=== PATIENT | male | born 1950 | race Caucasian/White ===

== ENCOUNTER 2019-04-24 07:32 | Day surgery (SDC) | payer MEDICARE ==
[~2019-04-24 07:32] MED LIST: Lactated Ringers 1,000 ML IV SCH
[2019-04-24] MEDS ORDERED: Propofol 200 MG/20 ML SDV IV ONE (07:33)
--- NOTE | 2019-04-24 09:47 | PCM.OPNOTE ---
- General Post-Op/Procedure Note Date of Surgery/Procedure: 04/24/19 Operative Procedure(s): c scope with bx Findings: descending colon mass Anesthesia Technique: MAC Primary Surgeon: Tra Marie Anesthesia Provider: Jazz Spencer ([facility] CRNAS) Pathology: colon mass Condition: Good Free Text/Narrative:: see dictation
--- NOTE | 2019-04-24 10:41 | OR ---
DATE OF OPERATION: 04/24/2019 SURGEON: Tra Marie MD PROCEDURE PERFORMED: Colonoscopy. PREOPERATIVE DIAGNOSIS: Need for screening C scope. POSTOPERATIVE DIAGNOSIS: Descending colon mass. INDICATIONS FOR PROCEDURE: This is a 69-year-old white male, who presents for screening colonoscopy. This is his first colon. He is without complaints. DESCRIPTION OF OPERATION: After an excellent IV sedation was administered, digital rectal exam was performed. No marked abnormality was noted. Flexible colonoscope was inserted and advanced to approximately 50 cm, where a circumferential lesion was encountered. We were able to advance the scope slightly through this and see beyond it. However, because of the friable nature of the tissue, we elected not to pursue this. Multiple biopsies were taken as well as a photo of this area. The scope was then slowly withdrawn. The following findings were noted. Remainder of the descending colon was unremarkable, sigmoid was unremarkable, and rectum was unremarkable. Further workup on the basis of our biopsy results. /[id number] SWATI/TARUN
== END 2019-04-24 10:18 | disposition home or self-care (01) ==
LOC: FB.SDS 07:32
PROVIDERS: ATTEND Surgery
DX: Z12.11 Encounter for screening for malignant neoplasm of colon (principal); C18.6 Malignant neoplasm of descending colon; I10 Essential (primary) hypertension; E11.9 Type 2 diabetes mellitus without complications; M10.9 Gout, unspecified; N40.0 Benign prostatic hyperplasia without lower urinary tract symptoms; E66.9 Obesity, unspecified; Z68.34 Body mass index [BMI] 34.0-34.9, adult; Z85.528 Personal history of other malignant neoplasm of kidney; Z79.899 Other long term (current) drug therapy; Z79.82 Long term (current) use of aspirin; Z88.8 Allergy status to other drugs, medicaments and biological substances; Z98.890 Other specified postprocedural states
CPT/HCPCS: 00812; 45380; 82962; 88305; J2704; J7120

== ENCOUNTER 2019-05-14 07:15 | Inpatient (IN) | payer MEDICARE ==
[2019-05-14] MEDS: Lactated Ringers 1,000 ML IV SCH ×2 (08:38→20:11)
[2019-05-14] MEDS ORDERED: cefOXitin 2 GM in Sodium Chloride 0.9% 100 ML IV ONE (08:45)
[2019-05-14] MEDS ORDERED: cefOXitin 2 GM Vial IV ONE (08:45)
--- NOTE | 2019-05-14 13:33 | PCM.OPNOTE ---
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
[2019-05-14] MEDS ORDERED: Ondansetron 4 MG/2 ML SDV IVPUSH PRN (13:34)
--- NOTE | 2019-05-14 14:33 | OR ---
DATE OF OPERATION: 05/14/2019 SURGEON: Tra Marie MD PROCEDURE PERFORMED: Left hemicolectomy and splenectomy. 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 INDICATIONS FOR PROCEDURE: This is a 69-year-old white male who recently underwent a colonoscopy and was found to have a near obstructing lesion of his left colon. He has a history of left nephrectomy as well as gangrenous gallbladder. He has had three previous intraoperative operations to this point. He was offered and accepted a left hemicolectomy. INTRAOPERATIVE FINDINGS: Are as follows, we were not able to palpate the liver. Due to adhesions, no other gross abnormality was noted. The patient had marked adhesions up of the splenic flexure between the colon and the spleen itself. He apparently had his short gastrics taken down with his nephrectomy. This did have an impact on the subsequent operation. DESCRIPTION OF PROCEDURE: After an excellent general anesthetic was administered via endotracheal tube, a Alcaraz catheter was placed. The patient was prepped and draped in the usual sterile manner. Midline incision was then carried out through his previous midline incision down below the umbilicus approximately 3 cm. With a #10 scalpel blade, the underlying subcu fat was divided using electrocautery. The midline fascia was exposed. The area of the umbilicus, the peritoneal cavity was opened. This allowed us to enter the peritoneal cavity superiorly and we were able to note a minimum of omental adhesions, which were taken down with the ligature. The mass was palpated and noted to be mid descending colon. The white line of Toldt was taken down starting at the level of the spleen and moving superiorly. When we got into the area of the splenic flexure, there were marked adhesions both posteriorly with retroperitoneum and between this colon and the spleen itself. There was some bleeding noted from the inferior pole of the spleen. This area had Nu-Knit placed on it and the area was packed off and it appeared to control the bleeding. Once we mobilized the colon at the level of the sigmoid, a rent was made in the mesentery. MILES was used to transect the sigmoid colon. V shape was then carried down to the level of the mid colic vessels which were clamped, divided, and tied with both free tie and suture ligature. The mesentery was then also divided up to the level of the now immobile of splenic flexure and the colon was divided again with a MILES. We were able to bring the two edges together very nicely. The posterior hand-sewn anastomosis was carried out with a posterior row of 3-0 Vicryl in a simple interrupted. After excising the staple line, the inner anastomosis was carried out with a running simple suture posteriorly and a running Mihai suture anteriorly and then the outer loop was carried out with interrupted Lembert sutures. Palpating the anastomosis, it was noted to be widely open and patent. The bowel appeared to be unremarkable and very viable. The mesenteric defect was then closed with a running 2-0 Vicryl. On re-inspecting the spleen, it was evident that he had some persistent bleeding and oozing with both arterial and venous. This was not control even with re- application of Nu-Knit and direct pressure. At this point, given his age and the fact that it is very difficult to get splenic bleeding to stop in this situation, we elected to proceed with a splenectomy. The spleen was mobilized with head attachments being taken down with the ligature. The splenic artery and vein were clamped, divided and tied with a 2-0 tie as well as a stick tie. The stomach was carefully inspected and there was no evidence of any short gastrics that were remaining. The area was irrigated and after ensuring excellent hemostasis, we reinspected our intestine. There was one small area of small intestine that more of the serosal appeared to be injured possibly from a ligature. This was oversewn with interrupted 3-0 Vicryl. There was a similar spot on the colon that was oversewn as well with interrupted 3-0 Vicryl to reapproximate and these were very superficial injuries, but this was done as a precaution. During inspecting our colon again, the omentum was returned to normal anatomic position. The fascial defect was closed with a running #1 Prolene and then jacy were used to close the skin. Needle, sponge, and instrument counts were reported as correct. EBL according to the anesthesia was 1600 mL. He got a total of 3800 mL IV and a 250 mL of urine out. /[id number] /MODL GILLESD
[2019-05-14] MEDS: Acetaminophen 1,000 MG in Premix Bag 1 BAG IV SCH ×2 (15:38→21:20)
[2019-05-14] MEDS: Pantoprazole 40 MG Vial IVPUSH SCH (17:28)
[2019-05-14] MEDS: HYDROmorphone 2 MG/ML SDV IVPUSH PRN (17:37)
--- NOTE | 2019-05-14 17:49 | PCM.SURGPN ---
- General Info Date of Service: 05/14/19 Date of Surgery/Procedure: 05/14/19 Functional Status: Reports: Pain Controlled, Urinating - Review of Systems Systems Review Comment:: was having some hypotension. this is better with some albumin - Patient Data Vitals - Most Recent: Last Vital Signs Temp 97.5 F 05/14/19 14:04 Pulse 82 05/14/19 17:08 Resp 16 05/14/19 17:08 BP 116/49 L 05/14/19 17:08 Pulse Ox 100 05/14/19 17:08 Weight - Most Recent: 98.883 kg I&O - Last 24 Hours: Intake & Output 05/14/19 05/14/19 05/14/19 06:59 14:59 22:59 Intake Total 3800 Output Total 250 35 Balance 3550 -35 Lab Results Last 24 Hrs: Laboratory Results - last 24 hr 05/14/19 05/14/19 05/14/19 Range/Units 07:55 08:28 13:03 WBC (4.5-12.0) X10-3/uL RBC (4.30-5.75) x10(6)uL Hgb (13.5-17.8) g/dL Hct (30.0-51.3) % MCV (80-96) fL MCH (27.7-33.6) pg MCHC (32.2-35.4) g/dL RDW (11.5-15.5) % Plt Count (125-369) X10(3)uL MPV (7.4-10.4) fL Add Manual Diff Neutrophils % (Manual) (46-82) % Band Neutrophils % (0-6) % Lymphocytes % (Manual) (13-37) % Monocytes % (Manual) (4-12) % Poikilocytosis Microcytosis POC Glucose 94 (80-116) mg/dL Blood Type O POSITIVE Gel Antibody Screen Positive Antibody Identification Anti-E Crossmatch See Detail 05/14/19 05/14/19 Range/Units 13:50 13:53 WBC 26.3 H (4.5-12.0) X10-3/uL RBC 3.52 L (4.30-5.75) x10(6)uL Hgb 9.1 L (13.5-17.8) g/dL Hct 27.3 L (30.0-51.3) % MCV 77.6 L (80-96) fL MCH 26.0 L (27.7-33.6) pg MCHC 33.5 (32.2-35.4) g/dL RDW 15.5 (11.5-15.5) % Plt Count 186 (125-369) X10(3)uL MPV 9.3 (7.4-10.4) fL Add Manual Diff Yes Neutrophils % (Manual) 87 H (46-82) % Band Neutrophils % 3 (0-6) % Lymphocytes % (Manual) 4 L (13-37) % Monocytes % (Manual) 6 (4-12) % Poikilocytosis Few Microcytosis Few POC Glucose 163 H (80-116) mg/dL Blood Type Gel Antibody Screen Antibody Identification Crossmatch Med Orders - Current: Current Medications Hydromorphone HCl (Dilaudid) 1 mg IVPUSH Q1H PRN PRN Reason: Pain (moderate 4-6) Last Admin: 05/14/19 17:37 Dose: 1 mg Lactated Ringer's (Ringers, Lactated) 1,000 mls @ 125 mls/hr IV ASDIRECTED [facility] Last Admin: 05/14/19 08:38 Dose: 125 mls/hr Acetaminophen 1,000 mg/ Premix 100 mls @ 400 mls/hr IV Q6H [facility] Stop: 05/15/19 15:29 Last Admin: 05/14/19 15:38 Dose: 400 mls/hr Albumin Human (Flexbumin 5%) 250 mls @ 250 mls/hr IV ASDIRECTED [facility] Last Admin: 05/14/19 15:21 Dose: 250 mls/hr Ondansetron HCl (Zofran) 4 mg IVPUSH Q6H PRN PRN Reason: Nausea/Vomiting Pantoprazole Sodium (Protonix Iv) 40 mg IVPUSH DAILY [facility] Last Admin: 05/14/19 17:28 Dose: 40 mg Sodium Chloride (Saline Flush) 10 ml FLUSH ASDIRECTED PRN PRN Reason: Keep Vein Open Discontinued Medications Cefoxitin Sodium (Mefoxin) 2 gm IV ONETIME ONE Stop: 05/14/19 08:46 Last Admin: 05/14/19 09:05 Dose: 2 gm - Exam Wound/Incisions: Dressing Dry and Intact Lungs: Clear to Auscultation, Normal Respiratory Effort Cardiovascular: Regular Rate, Regular Rhythm GI/Abdominal Exam: Abnormal Bowel Sounds (hypoactive ) - Problem List & Annotations (1) S/P colon resection SNOMED Code(s): 536314569, 34134282, 12597833, 119899093 Code(s): Z90.49 - ACQUIRED ABSENCE OF OTHER SPECIFIED PARTS OF DIGESTIVE TRACT Status: Acute Current Visit: Yes Annotation/Comment:: left dejuan colectomy (2) S/P splenectomy during current hospitalisation SNOMED Code(s): 743089751 Code(s): LMG3480 - Status: Acute Current Visit: Yes - Problem List Review Problem List Initiated/Reviewed/Updated: Yes - My Orders Last 24 Hours: Active Orders 24 hr Category Date Time Status Patient Status [ADT] Routine ADT 05/14/19 07:15 Active Ambulate [RC] .TID Care 05/14/19 13:35 Active Antiembolic Devices [RC] .Routine Care 05/14/19 13:36 Active Blood Glucose Check, Bedside [RC] [id number] Care 05/14/19 17:44 Ordered Gastrointestinal Tube Mgmt [RC] QSHIFT Care 05/14/19 13:34 Active Insert Alcaraz Catheter [Insert Urinary Catheter] [OM.PC] Care 05/14/19 08:45 Ordered Q24H Intake and Output [RC] QSHIFT Care 05/14/19 13:35 Active Notify Provider Vital Signs [RC] ASDIRECTED Care 05/14/19 17:17 Active Oxygen Therapy [RC] PRN Care 05/14/19 13:34 Active RT Incentive Spirometry [RC] ASDIRECTED Care 05/14/19 07:15 Active RT Incentive Spirometry [RC] Q2HWA Care 05/14/19 13:34 Active Urinary Catheter Assessment [RC] QSHIFT Care 05/14/19 08:45 Active VTE/DVT Education [RC] Click to Edit Care 05/14/19 13:36 Active Vital Signs [RC] Q4HR Care 05/14/19 13:34 Active BASIC METABOLIC PANEL,BMP [CHEM] AM Lab 05/15/19 05:11 Ordered CBC WITH AUTO DIFF [HEME] AM Lab 05/15/19 05:11 Ordered RED BLOOD CELLS LP [BBK] Routine Lab 05/14/19 13:03 Results Acetaminophen [Ofirmev] 1,000 mg Med 05/14/19 15:30 Active Premix Bag 1 bag IV Q6H Albumin Human [Flexbumin 5%] 250 ml Med 05/14/19 15:00 Active IV ASDIRECTED HYDROmorphone [Dilaudid] Med 05/14/19 13:34 Active 1 mg IVPUSH Q1H PRN Lactated Ringers [Ringers, Lactated] 1,000 ml Med 05/14/19 07:15 Active IV ASDIRECTED Ondansetron [Zofran] Med 05/14/19 13:34 Active 4 mg IVPUSH Q6H PRN Pantoprazole [ProTONIX IV] Med 05/14/19 17:00 Active 40 mg IVPUSH DAILY Sodium Chloride 0.9% [Saline Flush] Med 05/14/19 07:15 Active 10 ml FLUSH ASDIRECTED PRN DVT/VTE Prophylaxis Reflex [OM.PC] Per Unit Routine Oth 05/14/19 13:36 Ordered Peripheral IV Insertion Adult [OM.PC] Routine Oth 05/14/19 07:15 Ordered Sequential Compression Device [OM.PC] Routine Oth 05/14/19 07:15 Ordered Medication Orders Hydromorphone HCl (Dilaudid) 1 mg IVPUSH Q1H PRN PRN Reason: Pain (moderate 4-6) Last Admin: 05/14/19 17:37 Dose: 1 mg Lactated Ringer's (Ringers, Lactated) 1,000 mls @ 125 mls/hr IV ASDIRECTED [facility] Last Admin: 05/14/19 08:38 Dose: 125 mls/hr Acetaminophen 1,000 mg/ Premix 100 mls @ 400 mls/hr IV Q6H [facility] Stop: 05/15/19 15:29 Last Admin: 05/14/19 15:38 Dose: 400 mls/hr Albumin Human (Flexbumin 5%) 250 mls @ 250 mls/hr IV ASDIRECTED [facility] Last Admin: 05/14/19 15:21 Dose: 250 mls/hr Ondansetron HCl (Zofran) 4 mg IVPUSH Q6H PRN PRN Reason: Nausea/Vomiting Pantoprazole Sodium (Protonix Iv) 40 mg IVPUSH DAILY [facility] Last Admin: 05/14/19 17:28 Dose: 40 mg Sodium Chloride (Saline Flush) 10 ml FLUSH ASDIRECTED PRN PRN Reason: Keep Vein Open - Assessment Assessment (Free Text/Narrative):: will add sliding scale.
[2019-05-14] MEDS ORDERED: Midazolam 1 MG/ML 2 ML SDV IV ONE (17:54)
[2019-05-14] MEDS ORDERED: Succinylcholine 200 MG/10 ML MDV IV ONE (17:54)
[2019-05-14] MEDS ORDERED: Lactated Ringers 1,000 ML IV ONE (17:54)
[2019-05-14] MEDS ORDERED: Ondansetron 4 MG/2 ML SDV IVPUSH ONE (17:54)
[2019-05-14] MEDS ORDERED: Propofol 200 MG/20 ML SDV IV ONE (17:54)
[2019-05-14] MEDS ORDERED: ePHEDrine 50 MG/ML SDV IV ONE (17:54)
[2019-05-14] MEDS ORDERED: Acetaminophen 1,000 MG/100 ML Infusion Bottle IV ONE (17:54)
[2019-05-14] MEDS ORDERED: fentaNYL 100 MCG/2 ML SDV IV ONE (17:54)
[2019-05-14] MEDS ORDERED: Ketamine 500 mg/10 ML MDV IV ONE (17:54)
[2019-05-14] MEDS ORDERED: Phenylephrine 1% 10 MG/ML SDV IV ONE (17:54)
[2019-05-14] MEDS ORDERED: Glycopyrrolate 0.2 MG/ML 5 ML MDV IV ONE (17:54)
[2019-05-14] MEDS ORDERED: Rocuronium 100 MG/10 ML MDV IV ONE (17:54)
[2019-05-14] MEDS: Insulin Lispro 100 Unit/ML 3 ML KwikPen SUBCUT SCH (18:12)
[2019-05-15] MEDS: Insulin Lispro 100 Unit/ML 3 ML KwikPen SUBCUT SCH ×3 (01:55→18:11)
[2019-05-15] MEDS: HYDROmorphone 2 MG/ML SDV IVPUSH PRN ×2 (02:02→13:01)
[2019-05-15] MEDS: Acetaminophen 1,000 MG in Premix Bag 1 BAG IV SCH ×4 (04:02→22:12)
[2019-05-15] MEDS: Lactated Ringers 1,000 ML IV SCH (04:51)
[2019-05-15] MEDS: Sodium Chloride 0.9% 10 ML Syringe FLUSH PRN ×2 (08:12→13:02)
--- NOTE | 2019-05-15 08:46 | PCM.SURGPN ---
- General Info Date of Service: 05/15/19 POD#: 1 Functional Status: Reports: Ambulating, Urinating, Incentive Spirometry - Review of Systems Pulmonary: Reports: No Symptoms Cardiovascular: Reports: No Symptoms Gastrointestinal: Reports: Abdominal Pain - Patient Data Vitals - Most Recent: Last Vital Signs Temp 98.8 F 05/15/19 04:40 Pulse 80 05/14/19 18:20 Resp 16 05/15/19 04:40 BP 131/57 L 05/15/19 04:40 Pulse Ox 99 05/15/19 04:40 Weight - Most Recent: 98.883 kg I&O - Last 24 Hours: Intake & Output 05/14/19 05/15/19 05/15/19 22:59 06:59 14:59 Intake Total 2135 Output Total 590 500 Balance -590 1635 Lab Results Last 24 Hrs: Laboratory Results - last 24 hr 05/14/19 05/14/19 05/14/19 Range/Units 07:55 13:03 13:50 WBC 26.3 H (4.5-12.0) X10-3/uL RBC 3.52 L (4.30-5.75) x10(6)uL Hgb 9.1 L (13.5-17.8) g/dL Hct 27.3 L (30.0-51.3) % MCV 77.6 L (80-96) fL MCH 26.0 L (27.7-33.6) pg MCHC 33.5 (32.2-35.4) g/dL RDW 15.5 (11.5-15.5) % Plt Count 186 (125-369) X10(3)uL MPV 9.3 (7.4-10.4) fL Add Manual Diff Yes Neutrophils % (Manual) 87 H (46-82) % Band Neutrophils % 3 (0-6) % Lymphocytes % (Manual) 4 L (13-37) % Monocytes % (Manual) 6 (4-12) % Poikilocytosis Few Microcytosis Few Sodium (135-145) mmol/L Potassium (3.5-5.3) mmol/L Chloride (100-110) mmol/L Carbon Dioxide (21-32) mmol/L BUN (7-18) mg/dL Creatinine (0.70-1.30) mg/dL Est Cr Clr Drug Dosing mL/min Estimated GFR (MDRD) (>60) BUN/Creatinine Ratio (9-20) Glucose (80-116) mg/dL POC Glucose (80-116) mg/dL Calcium (8.6-10.2) mg/dL Blood Type O POSITIVE Gel Antibody Screen Positive Antibody Identification Anti-E Crossmatch See Detail 05/14/19 05/14/19 05/15/19 Range/Units 13:53 17:44 06:30 WBC 18.2 H (4.5-12.0) X10-3/uL RBC 3.14 L (4.30-5.75) x10(6)uL Hgb 7.9 L (13.5-17.8) g/dL Hct 24.5 L (30.0-51.3) % MCV 78.0 L (80-96) fL MCH 25.1 L (27.7-33.6) pg MCHC 32.2 (32.2-35.4) g/dL RDW 15.7 H (11.5-15.5) % Plt Count 204 (125-369) X10(3)uL MPV 9.5 (7.4-10.4) fL Add Manual Diff Yes Neutrophils % (Manual) 90 H (46-82) % Band Neutrophils % (0-6) % Lymphocytes % (Manual) 8 L (13-37) % Monocytes % (Manual) 2 L (4-12) % Poikilocytosis Few Microcytosis Few Sodium (135-145) mmol/L Potassium (3.5-5.3) mmol/L Chloride (100-110) mmol/L Carbon Dioxide (21-32) mmol/L BUN (7-18) mg/dL Creatinine (0.70-1.30) mg/dL Est Cr Clr Drug Dosing mL/min Estimated GFR (MDRD) (>60) BUN/Creatinine Ratio (9-20) Glucose (80-116) mg/dL POC Glucose 163 H 174 H (80-116) mg/dL Calcium (8.6-10.2) mg/dL Blood Type Gel Antibody Screen Antibody Identification Crossmatch 05/15/19 Range/Units 06:30 WBC (4.5-12.0) X10-3/uL RBC (4.30-5.75) x10(6)uL Hgb (13.5-17.8) g/dL Hct (30.0-51.3) % MCV (80-96) fL MCH (27.7-33.6) pg MCHC (32.2-35.4) g/dL RDW (11.5-15.5) % Plt Count (125-369) X10(3)uL MPV (7.4-10.4) fL Add Manual Diff Neutrophils % (Manual) (46-82) % Band Neutrophils % (0-6) % Lymphocytes % (Manual) (13-37) % Monocytes % (Manual) (4-12) % Poikilocytosis Microcytosis Sodium 140 (135-145) mmol/L Potassium 4.2 (3.5-5.3) mmol/L Chloride 105 (100-110) mmol/L Carbon Dioxide 30 (21-32) mmol/L BUN 19 H (7-18) mg/dL Creatinine 1.4 H (0.70-1.30) mg/dL Est Cr Clr Drug Dosing 49.10 mL/min Estimated GFR (MDRD) 50 L (>60) BUN/Creatinine Ratio 13.6 (9-20) Glucose 120 H (80-116) mg/dL POC Glucose (80-116) mg/dL Calcium 7.9 L (8.6-10.2) mg/dL Blood Type Gel Antibody Screen Antibody Identification Crossmatch Med Orders - Current: Current Medications Hydromorphone HCl (Dilaudid) 1 mg IVPUSH Q1H PRN PRN Reason: Pain (moderate 4-6) Last Admin: 05/15/19 02:02 Dose: 1 mg Lactated Ringer's (Ringers, Lactated) 1,000 mls @ 125 mls/hr IV ASDIRECTED [facility] Last Admin: 05/15/19 04:51 Dose: 125 mls/hr Acetaminophen 1,000 mg/ Premix 100 mls @ 400 mls/hr IV Q6H [facility] Stop: 05/15/19 15:29 Last Admin: 05/15/19 04:02 Dose: 400 mls/hr Albumin Human (Flexbumin 5%) 250 mls @ 250 mls/hr IV ASDIRECTED [facility] Last Admin: 05/14/19 15:21 Dose: 250 mls/hr Insulin Human Lispro (Humalog) 0 unit SUBCUT Q8H [facility]; Protocol Last Admin: 05/15/19 01:55 Dose: Not Given Ondansetron HCl (Zofran) 4 mg IVPUSH Q6H PRN PRN Reason: Nausea/Vomiting Pantoprazole Sodium (Protonix Iv) 40 mg IVPUSH DAILY [facility] Last Admin: 05/14/19 17:28 Dose: 40 mg Sodium Chloride (Saline Flush) 10 ml FLUSH ASDIRECTED PRN PRN Reason: Keep Vein Open Last Admin: 05/15/19 08:12 Dose: 10 ml Discontinued Medications Cefoxitin Sodium (Mefoxin) 2 gm IV ONETIME ONE Stop: 05/14/19 08:46 Last Admin: 05/14/19 09:05 Dose: 2 gm - Exam Wound/Incisions: Dressing Dry and Intact General: Alert, Oriented, No Acute Distress Lungs: Clear to Auscultation, Normal Respiratory Effort Cardiovascular: Regular Rate, Regular Rhythm GI/Abdominal Exam: Abnormal Bowel Sounds (hypoactive bowel sounds ) Skin: Warm, Dry, Intact - Problem List & Annotations (1) S/P colon resection SNOMED Code(s): 035572405, 28914877, 44193521, 278969938 Code(s): Z90.49 - ACQUIRED ABSENCE OF OTHER SPECIFIED PARTS OF DIGESTIVE TRACT Status: Acute Current Visit: Yes Annotation/Comment:: left dejuan colectomy (2) S/P splenectomy during current hospitalisation SNOMED Code(s): 023345870 Code(s): JLD6266 - Status: Acute Current Visit: Yes - Problem List Review Problem List Initiated/Reviewed/Updated: Yes - My Orders Last 24 Hours: Active Orders 24 hr Category Date Time Status Ambulate [RC] .TID Care 05/14/19 13:35 Active Antiembolic Devices [RC] .Routine Care 05/14/19 13:36 Active Blood Glucose Check, Bedside [RC] 18,02,10 Care 05/14/19 17:44 Active Gastrointestinal Tube Mgmt [RC] QSHIFT Care 05/14/19 13:34 Active Insert Alcaraz Catheter [Insert Urinary Catheter] [OM.PC] Care 05/14/19 08:45 Ordered Q24H Intake and Output [RC] 06,14,22 Care 05/14/19 13:35 Active Notify Provider Vital Signs [RC] ASDIRECTED Care 05/14/19 17:17 Active Oxygen Therapy [RC] PRN Care 05/14/19 13:34 Active RT Incentive Spirometry [RC] Q2HWA Care 05/14/19 13:34 Active Urinary Catheter Assessment [RC] QSHIFT Care 05/14/19 08:45 Active VTE/DVT Education [RC] Click to Edit Care 05/14/19 13:36 Active Vital Signs [RC] Q4HR Care 05/14/19 13:34 Active RED BLOOD CELLS LP [BBK] Routine Lab 05/14/19 13:03 Results Acetaminophen [Ofirmev] 1,000 mg Med 05/14/19 15:30 Active Premix Bag 1 bag IV Q6H Albumin Human [Flexbumin 5%] 250 ml Med 05/14/19 15:00 Active IV ASDIRECTED HYDROmorphone [Dilaudid] Med 05/14/19 13:34 Active 1 mg IVPUSH Q1H PRN Insulin Lispro [HumaLOG] Med 05/14/19 18:00 Active See Protocol SUBCUT Q8H Ondansetron [Zofran] Med 05/14/19 13:34 Active 4 mg IVPUSH Q6H PRN Pantoprazole [ProTONIX IV] Med 05/14/19 17:00 Active 40 mg IVPUSH DAILY DVT/VTE Prophylaxis Reflex [OM.PC] Per Unit Routine Oth 05/14/19 13:36 Ordered Medication Orders Hydromorphone HCl (Dilaudid) 1 mg IVPUSH Q1H PRN PRN Reason: Pain (moderate 4-6) Last Admin: 05/15/19 02:02 Dose: 1 mg Admin: 05/14/19 17:37 Dose: 1 mg Lactated Ringer's (Ringers, Lactated) 1,000 mls @ 125 mls/hr IV ASDIRECTED [facility] Last Admin: 05/15/19 04:51 Dose: 125 mls/hr Infusion: 05/15/19 04:11 Dose: 125 mls/hr Admin: 05/14/19 20:11 Dose: 125 mls/hr Infusion: 05/14/19 16:38 Dose: 125 mls/hr Admin: 05/14/19 08:38 Dose: 125 mls/hr Acetaminophen 1,000 mg/ Premix 100 mls @ 400 mls/hr IV Q6H [facility] Stop: 05/15/19 15:29 Last Admin: 05/15/19 04:02 Dose: 400 mls/hr Infusion: 05/14/19 21:35 Dose: 400 mls/hr Admin: 05/14/19 21:20 Dose: 400 mls/hr Infusion: 05/14/19 15:53 Dose: 400 mls/hr Admin: 05/14/19 15:38 Dose: 400 mls/hr Albumin Human (Flexbumin 5%) 250 mls @ 250 mls/hr IV ASDIRECTED [facility] Last Admin: 05/14/19 15:21 Dose: 250 mls/hr Insulin Human Lispro (Humalog) 0 unit SUBCUT Q8H [facility]; Protocol Last Admin: 05/15/19 01:55 Dose: Not Given Admin: 05/14/19 18:12 Dose: 2 units Ondansetron HCl (Zofran) 4 mg IVPUSH Q6H PRN PRN Reason: Nausea/Vomiting Pantoprazole Sodium (Protonix Iv) 40 mg IVPUSH DAILY [facility] Last Admin: 05/14/19 17:28 Dose: 40 mg Sodium Chloride (Saline Flush) 10 ml FLUSH ASDIRECTED PRN PRN Reason: Keep Vein Open Last Admin: 05/15/19 08:12 Dose: 10 ml - Assessment Assessment (Free Text/Narrative):: unremarkable post op exam elevated wbc from splenectomy - Plan Plan (Free Text/Narrative):: continue current rx
[2019-05-15] MEDS: Pantoprazole 40 MG Vial IVPUSH SCH (08:59)
[2019-05-15] MEDS: D5 1/2 NS w/ 20 mEq/L KCl 1,000 ML IV SCH ×2 (09:25→17:15)
[2019-05-16] MEDS: HYDROmorphone 2 MG/ML SDV IVPUSH PRN ×3 (00:58→21:48)
[2019-05-16] MEDS: D5 1/2 NS w/ 20 mEq/L KCl 1,000 ML IV SCH ×3 (01:22→18:24)
[2019-05-16] MEDS: Insulin Lispro 100 Unit/ML 3 ML KwikPen SUBCUT SCH ×3 (01:35→18:28)
[2019-05-16] MEDS: Acetaminophen 1,000 MG in Premix Bag 1 BAG IV SCH ×3 (04:28→17:16)
--- NOTE | 2019-05-16 07:56 | PCM.SURGPN ---
- General Info Date of Service: 05/16/19 POD#: 2 Functional Status: Reports: Pain Controlled, Ambulating, Urinating, Incentive Spirometry. Denies: New Symptoms - Review of Systems General: Reports: No Symptoms Pulmonary: Reports: No Symptoms Cardiovascular: Reports: No Symptoms Gastrointestinal: Reports: Abdominal Pain. Denies: Flatus - Patient Data Vitals - Most Recent: Last Vital Signs Temp 98.0 F 05/16/19 03:56 Pulse 97 05/16/19 03:56 Resp 17 05/16/19 03:56 BP 136/56 L 05/16/19 03:56 Pulse Ox 93 L 05/16/19 03:56 Weight - Most Recent: 98.883 kg I&O - Last 24 Hours: Intake & Output 05/15/19 05/16/19 05/16/19 22:59 06:59 14:59 Intake Total 957 1187 Output Total 400 300 Balance 557 887 Lab Results Last 24 Hrs: Laboratory Results - last 24 hr 05/14/19 05/15/19 05/15/19 Range/Units 07:55 01:51 10:08 POC Glucose 141 H 120 H (80-116) mg/dL Blood Type O POSITIVE Gel Antibody Screen Positive Antibody Identification Anti-E 05/15/19 Range/Units 18:09 POC Glucose 139 H (80-116) mg/dL Blood Type Gel Antibody Screen Antibody Identification Med Orders - Current: Current Medications Hydromorphone HCl (Dilaudid) 1 mg IVPUSH Q1H PRN PRN Reason: Pain (moderate 4-6) Last Admin: 05/16/19 00:58 Dose: 1 mg Albumin Human (Flexbumin 5%) 250 mls @ 250 mls/hr IV ASDIRECTED [facility] Last Admin: 05/14/19 15:21 Dose: 250 mls/hr Potassium Chloride/Dextrose/Sod Cl (D5 1/2 Ns W/ 20 Meq/L Kcl) 1,000 mls @ 125 mls/hr IV Q8H [facility] Last Admin: 05/16/19 01:22 Dose: 125 mls/hr Acetaminophen 1,000 mg/ Premix 100 mls @ 400 mls/hr IV Q6H [facility] Stop: 05/16/19 16:46 Last Admin: 05/16/19 04:28 Dose: 400 mls/hr Insulin Human Lispro (Humalog) 0 unit SUBCUT Q8H [facility]; Protocol Last Admin: 05/16/19 01:35 Dose: Not Given Ondansetron HCl (Zofran) 4 mg IVPUSH Q6H PRN PRN Reason: Nausea/Vomiting Pantoprazole Sodium (Protonix Iv) 40 mg IVPUSH DAILY [facility] Last Admin: 05/15/19 08:59 Dose: 40 mg Sodium Chloride (Saline Flush) 10 ml FLUSH ASDIRECTED PRN PRN Reason: Keep Vein Open Last Admin: 05/15/19 13:02 Dose: 10 ml Discontinued Medications Cefoxitin Sodium (Mefoxin) 2 gm IV ONETIME ONE Stop: 05/14/19 08:46 Last Admin: 05/14/19 09:05 Dose: 2 gm Lactated Ringer's (Ringers, Lactated) 1,000 mls @ 125 mls/hr IV ASDIRECTED [facility] Last Admin: 05/15/19 04:51 Dose: 125 mls/hr Acetaminophen 1,000 mg/ Premix 100 mls @ 400 mls/hr IV Q6H [facility] Stop: 05/15/19 15:29 Last Admin: 05/15/19 09:02 Dose: 400 mls/hr - Exam Wound/Incisions: Dressing Dry and Intact General: Alert, Oriented, Cooperative, No Acute Distress Lungs: Clear to Auscultation, Normal Respiratory Effort Cardiovascular: Regular Rate, Regular Rhythm GI/Abdominal Exam: Normal Bowel Sounds, Soft Skin: Warm, Dry, Intact - Problem List & Annotations (1) S/P colon resection SNOMED Code(s): 451555491, 59047642, 64865874, 025221669 Code(s): Z90.49 - ACQUIRED ABSENCE OF OTHER SPECIFIED PARTS OF DIGESTIVE TRACT Status: Acute Current Visit: Yes Annotation/Comment:: left dejuan colectomy (2) S/P splenectomy during current hospitalisation SNOMED Code(s): 291000417 Code(s): LPN9618 - Status: Acute Current Visit: Yes - Problem List Review Problem List Initiated/Reviewed/Updated: Yes - My Orders Last 24 Hours: Active Orders 24 hr Category Date Time Status Acetaminophen [Ofirmev] 1,000 mg Med 05/15/19 16:45 Active Premix Bag 1 bag IV Q6H D5 1/2 NS w/ 20 mEq/L KCl 1,000 ml Med 05/15/19 09:00 Active IV Q8H Medication Orders Hydromorphone HCl (Dilaudid) 1 mg IVPUSH Q1H PRN PRN Reason: Pain (moderate 4-6) Last Admin: 05/16/19 00:58 Dose: 1 mg Admin: 05/15/19 13:01 Dose: 1 mg Admin: 05/15/19 02:02 Dose: 1 mg Admin: 05/14/19 17:37 Dose: 1 mg Albumin Human (Flexbumin 5%) 250 mls @ 250 mls/hr IV ASDIRECTED [facility] Last Admin: 05/14/19 15:21 Dose: 250 mls/hr Potassium Chloride/Dextrose/Sod Cl (D5 1/2 Ns W/ 20 Meq/L Kcl) 1,000 mls @ 125 mls/hr IV Q8H [facility] Last Admin: 05/16/19 01:22 Dose: 125 mls/hr Infusion: 05/16/19 01:15 Dose: 125 mls/hr Admin: 05/15/19 17:15 Dose: 125 mls/hr Infusion: 05/15/19 17:15 Dose: 125 mls/hr Admin: 05/15/19 09:25 Dose: 125 mls/hr Acetaminophen 1,000 mg/ Premix 100 mls @ 400 mls/hr IV Q6H [facility] Stop: 05/16/19 16:46 Last Admin: 05/16/19 04:28 Dose: 400 mls/hr Infusion: 05/15/19 22:27 Dose: 400 mls/hr Admin: 05/15/19 22:12 Dose: 400 mls/hr Infusion: 05/15/19 17:29 Dose: 400 mls/hr Admin: 05/15/19 17:14 Dose: 400 mls/hr Insulin Human Lispro (Humalog) 0 unit SUBCUT Q8H [facility]; Protocol Last Admin: 05/16/19 01:35 Dose: Not Given Admin: 05/15/19 18:11 Dose: Not Given Admin: 05/15/19 10:38 Dose: Admin: 05/15/19 01:55 Dose: Not Given Admin: 05/14/19 18:12 Dose: 2 units Ondansetron HCl (Zofran) 4 mg IVPUSH Q6H PRN PRN Reason: Nausea/Vomiting Pantoprazole Sodium (Protonix Iv) 40 mg IVPUSH DAILY [facility] Last Admin: 05/15/19 08:59 Dose: 40 mg Admin: 05/14/19 17:28 Dose: 40 mg Sodium Chloride (Saline Flush) 10 ml FLUSH ASDIRECTED PRN PRN Reason: Keep Vein Open Last Admin: 05/15/19 13:02 Dose: 10 ml Admin: 05/15/19 08:12 Dose: 10 ml - Assessment Assessment (Free Text/Narrative):: POD #2 bowel sounds are better. pain is controlled. - Plan Plan (Free Text/Narrative):: NGT and duque out ambulate. continue SCD's recheck labs in am.
[2019-05-16] MEDS: Pantoprazole 40 MG Vial IVPUSH SCH (09:32)
[2019-05-16] MEDS: Sodium Chloride 0.9% 10 ML Syringe FLUSH PRN ×3 (09:40→17:38)
[2019-05-17] MEDS: D5 1/2 NS w/ 20 mEq/L KCl 1,000 ML IV SCH ×3 (02:11→17:45)
[2019-05-17] MEDS: Insulin Lispro 100 Unit/ML 3 ML KwikPen SUBCUT SCH ×3 (03:01→17:51)
--- NOTE | 2019-05-17 09:24 | PCM.SURGPN ---
- General Info Date of Service: 05/17/19 POD#: 3 Functional Status: Reports: Pain Controlled, Ambulating, Urinating. Denies: New Symptoms - Review of Systems General: Denies: Fever, Weakness Pulmonary: Reports: No Symptoms Cardiovascular: Reports: No Symptoms Gastrointestinal: Reports: Abdominal Pain. Denies: Flatus Musculoskeletal: Reports: Back Pain Skin: Reports: No Symptoms - Patient Data Vitals - Most Recent: Last Vital Signs Temp 99.5 F 05/17/19 04:00 Pulse 106 H 05/17/19 04:00 Resp 18 05/17/19 04:00 BP 157/62 H 05/17/19 06:54 Pulse Ox 94 L 05/17/19 04:00 Weight - Most Recent: 98.883 kg I&O - Last 24 Hours: Intake & Output 05/16/19 05/17/19 05/17/19 22:59 06:59 14:59 Intake Total 970 1008 Output Total 550 775 Balance 420 233 Lab Results Last 24 Hrs: Laboratory Results - last 24 hr 05/16/19 05/16/19 05/16/19 Range/Units 01:25 09:57 18:27 WBC (4.5-12.0) X10-3/uL RBC (4.30-5.75) x10(6)uL Hgb (13.5-17.8) g/dL Hct (30.0-51.3) % MCV (80-96) fL MCH (27.7-33.6) pg MCHC (32.2-35.4) g/dL RDW (11.5-15.5) % Plt Count (125-369) X10(3)uL MPV (7.4-10.4) fL Add Manual Diff Neutrophils % (Manual) (46-82) % Lymphocytes % (Manual) (13-37) % Eosinophils % (Manual) (0-5) % Sodium (135-145) mmol/L Potassium (3.5-5.3) mmol/L Chloride (100-110) mmol/L Carbon Dioxide (21-32) mmol/L BUN (7-18) mg/dL Creatinine (0.70-1.30) mg/dL Est Cr Clr Drug Dosing mL/min Estimated GFR (MDRD) (>60) BUN/Creatinine Ratio (9-20) Glucose (80-116) mg/dL POC Glucose 139 H 128 H 124 H (80-116) mg/dL Calcium (8.6-10.2) mg/dL 05/17/19 05/17/19 05/17/19 Range/Units 02:14 06:05 06:05 WBC 16.7 H (4.5-12.0) X10-3/uL RBC 2.78 L (4.30-5.75) x10(6)uL Hgb 7.3 L (13.5-17.8) g/dL Hct 21.8 L* (30.0-51.3) % MCV 78.3 L (80-96) fL MCH 26.4 L (27.7-33.6) pg MCHC 33.7 (32.2-35.4) g/dL RDW 16.0 H (11.5-15.5) % Plt Count 230 (125-369) X10(3)uL MPV 9.5 (7.4-10.4) fL Add Manual Diff Yes Neutrophils % (Manual) 87 H (46-82) % Lymphocytes % (Manual) 9 L (13-37) % Eosinophils % (Manual) 4 (0-5) % Sodium 138 (135-145) mmol/L Potassium 4.0 (3.5-5.3) mmol/L Chloride 103 (100-110) mmol/L Carbon Dioxide 27 (21-32) mmol/L BUN 10 (7-18) mg/dL Creatinine 1.0 (0.70-1.30) mg/dL Est Cr Clr Drug Dosing 68.74 mL/min Estimated GFR (MDRD) > 60 (>60) BUN/Creatinine Ratio 10.0 (9-20) Glucose 127 H (80-116) mg/dL POC Glucose 129 H (80-116) mg/dL Calcium 8.3 L (8.6-10.2) mg/dL Med Orders - Current: Current Medications Hydromorphone HCl (Dilaudid) 1 mg IVPUSH Q1H PRN PRN Reason: Pain (moderate 4-6) Last Admin: 05/16/19 21:48 Dose: 1 mg Albumin Human (Flexbumin 5%) 250 mls @ 250 mls/hr IV ASDIRECTED [facility] Last Admin: 05/14/19 15:21 Dose: 250 mls/hr Potassium Chloride/Dextrose/Sod Cl (D5 1/2 Ns W/ 20 Meq/L Kcl) 1,000 mls @ 125 mls/hr IV Q8H [facility] Last Admin: 05/17/19 02:11 Dose: 125 mls/hr Insulin Human Lispro (Humalog) 0 unit SUBCUT Q8H [facility]; Protocol Last Admin: 05/17/19 03:01 Dose: Not Given Ondansetron HCl (Zofran) 4 mg IVPUSH Q6H PRN PRN Reason: Nausea/Vomiting Pantoprazole Sodium (Protonix Iv) 40 mg IVPUSH DAILY [facility] Last Admin: 05/16/19 09:32 Dose: 40 mg Sodium Chloride (Saline Flush) 10 ml FLUSH ASDIRECTED PRN PRN Reason: Keep Vein Open Last Admin: 05/16/19 17:38 Dose: 10 ml Discontinued Medications Cefoxitin Sodium (Mefoxin) 2 gm IV ONETIME ONE Stop: 05/14/19 08:46 Last Admin: 05/14/19 09:05 Dose: 2 gm Lactated Ringer's (Ringers, Lactated) 1,000 mls @ 125 mls/hr IV ASDIRECTED [facility] Last Admin: 05/15/19 04:51 Dose: 125 mls/hr Acetaminophen 1,000 mg/ Premix 100 mls @ 400 mls/hr IV Q6H [facility] Stop: 05/15/19 15:29 Last Admin: 05/15/19 09:02 Dose: 400 mls/hr Acetaminophen 1,000 mg/ Premix 100 mls @ 400 mls/hr IV Q6H [facility] Stop: 05/16/19 16:46 Last Admin: 05/16/19 17:16 Dose: 400 mls/hr - Exam Wound/Incisions: Dressing Dry and Intact, No Drainage General: Alert, Oriented, Cooperative, No Acute Distress Lungs: Clear to Auscultation, Normal Respiratory Effort Cardiovascular: Regular Rate, Regular Rhythm GI/Abdominal Exam: Soft, Non-Tender, Abnormal Bowel Sounds (slightly hypoactivie ) - Problem List & Annotations (1) S/P colon resection SNOMED Code(s): 830717988, 77103579, 88183574, 836965021 Code(s): Z90.49 - ACQUIRED ABSENCE OF OTHER SPECIFIED PARTS OF DIGESTIVE TRACT Status: Acute Current Visit: Yes Annotation/Comment:: left dejuan colectomy (2) S/P splenectomy during current hospitalisation SNOMED Code(s): 079035782 Code(s): CDC0187 - Status: Acute Current Visit: Yes - Problem List Review Problem List Initiated/Reviewed/Updated: Yes - My Orders Last 24 Hours: Medication Orders Hydromorphone HCl (Dilaudid) 1 mg IVPUSH Q1H PRN PRN Reason: Pain (moderate 4-6) Last Admin: 05/16/19 21:48 Dose: 1 mg Admin: 05/16/19 09:46 Dose: 1 mg Admin: 05/16/19 00:58 Dose: 1 mg Admin: 05/15/19 13:01 Dose: 1 mg Admin: 05/15/19 02:02 Dose: 1 mg Admin: 05/14/19 17:37 Dose: 1 mg Albumin Human (Flexbumin 5%) 250 mls @ 250 mls/hr IV ASDIRECTED [facility] Last Admin: 05/14/19 15:21 Dose: 250 mls/hr Potassium Chloride/Dextrose/Sod Cl (D5 1/2 Ns W/ 20 Meq/L Kcl) 1,000 mls @ 125 mls/hr IV Q8H [facility] Last Admin: 05/17/19 02:11 Dose: 125 mls/hr Infusion: 05/17/19 02:11 Dose: 125 mls/hr Admin: 05/16/19 18:24 Dose: 125 mls/hr Infusion: 05/16/19 17:45 Dose: 125 mls/hr Admin: 05/16/19 09:45 Dose: 125 mls/hr Infusion: 05/16/19 09:22 Dose: 125 mls/hr Admin: 05/16/19 01:22 Dose: 125 mls/hr Infusion: 05/16/19 01:15 Dose: 125 mls/hr Admin: 05/15/19 17:15 Dose: 125 mls/hr Infusion: 05/15/19 17:15 Dose: 125 mls/hr Admin: 05/15/19 09:25 Dose: 125 mls/hr Insulin Human Lispro (Humalog) 0 unit SUBCUT Q8H [facility]; Protocol Last Admin: 05/17/19 03:01 Dose: Not Given Admin: 05/16/19 18:28 Dose: Not Given Admin: 05/16/19 09:58 Dose: Admin: 05/16/19 01:35 Dose: Not Given Admin: 05/15/19 18:11 Dose: Not Given Admin: 05/15/19 10:38 Dose: Admin: 05/15/19 01:55 Dose: Not Given Admin: 05/14/19 18:12 Dose: 2 units Ondansetron HCl (Zofran) 4 mg IVPUSH Q6H PRN PRN Reason: Nausea/Vomiting Pantoprazole Sodium (Protonix Iv) 40 mg IVPUSH DAILY [facility] Last Admin: 05/16/19 09:32 Dose: 40 mg Admin: 05/15/19 08:59 Dose: 40 mg Admin: 05/14/19 17:28 Dose: 40 mg Sodium Chloride (Saline Flush) 10 ml FLUSH ASDIRECTED PRN PRN Reason: Keep Vein Open Last Admin: 05/16/19 17:38 Dose: 10 ml Admin: 05/16/19 09:53 Dose: 10 ml Admin: 05/16/19 09:40 Dose: 10 ml Admin: 05/15/19 13:02 Dose: 10 ml Admin: 05/15/19 08:12 Dose: 10 ml - Assessment Assessment (Free Text/Narrative):: stable exam - Plan Plan (Free Text/Narrative):: continue current rx. awaiting the return of bowel function.
[2019-05-17] MEDS: Pantoprazole 40 MG Vial IVPUSH SCH (09:30)
[2019-05-17] MEDS: Sodium Chloride 0.9% 10 ML Syringe FLUSH PRN (09:36)
[2019-05-17] MEDS: amLODIPine 5 MG Tab PO SCH ×2 (09:48→20:21)
[2019-05-18] MEDS: HYDROmorphone 2 MG/ML SDV IVPUSH PRN (00:33)
[2019-05-18] MEDS: D5 1/2 NS w/ 20 mEq/L KCl 1,000 ML IV SCH ×4 (01:35→22:43)
[2019-05-18] MEDS: Insulin Lispro 100 Unit/ML 3 ML KwikPen SUBCUT SCH ×3 (01:40→17:32)
--- NOTE | 2019-05-18 08:47 | PCM.SURGPN ---
- General Info Date of Service: 05/18/19 POD#: 4 Functional Status: Reports: Pain Controlled, Ambulating, Urinating (has started to mobilize fluids. ) - Review of Systems HEENT: Reports: Other (hiccups started this am at about 1 am. has been nonstop ) Pulmonary: Reports: No Symptoms Cardiovascular: Reports: No Symptoms Gastrointestinal: Denies: Difficulty Swallowing, Flatus, Nausea, Vomiting - Patient Data Vitals - Most Recent: Last Vital Signs Temp 99.0 F 05/18/19 08:00 Pulse 88 05/18/19 08:00 Resp 16 05/18/19 08:00 BP 160/68 H 05/18/19 08:00 Pulse Ox 96 05/18/19 08:00 Weight - Most Recent: 98.883 kg I&O - Last 24 Hours: Intake & Output 05/17/19 05/18/19 05/18/19 22:59 06:59 14:59 Intake Total 947 1032 Output Total 675 750 Balance 272 282 Lab Results Last 24 Hrs: Laboratory Results - last 24 hr 05/14/19 05/17/19 05/17/19 Range/Units 13:03 10:41 17:48 POC Glucose 111 128 H (80-116) mg/dL Crossmatch See Detail Med Orders - Current: Current Medications Amlodipine Besylate (Norvasc) 5 mg PO BID [facility] Last Admin: 05/17/19 20:21 Dose: 5 mg HCTZ/Losartan Potassium (Hyzaar 100-12.5 Mg) tab PO DAILY [facility] Hydromorphone HCl (Dilaudid) 1 mg IVPUSH Q1H PRN PRN Reason: Pain (moderate 4-6) Last Admin: 05/18/19 00:33 Dose: 1 mg Albumin Human (Flexbumin 5%) 250 mls @ 250 mls/hr IV ASDIRECTED [facility] Last Admin: 05/14/19 15:21 Dose: 250 mls/hr Potassium Chloride/Dextrose/Sod Cl (D5 1/2 Ns W/ 20 Meq/L Kcl) 1,000 mls @ 75 mls/hr IV Q8H [facility] Last Admin: 05/18/19 01:35 Dose: 125 mls/hr Insulin Human Lispro (Humalog) 0 unit SUBCUT Q8H [facility]; Protocol Last Admin: 05/18/19 01:40 Dose: 2 units Ondansetron HCl (Zofran) 4 mg IVPUSH Q6H PRN PRN Reason: Nausea/Vomiting Pantoprazole Sodium (Protonix Iv) 40 mg IVPUSH DAILY [facility] Last Admin: 05/17/19 09:30 Dose: 40 mg Sodium Chloride (Saline Flush) 10 ml FLUSH ASDIRECTED PRN PRN Reason: Keep Vein Open Last Admin: 05/17/19 09:36 Dose: 10 ml Discontinued Medications Cefoxitin Sodium (Mefoxin) 2 gm IV ONETIME ONE Stop: 05/14/19 08:46 Last Admin: 05/14/19 09:05 Dose: 2 gm Lactated Ringer's (Ringers, Lactated) 1,000 mls @ 125 mls/hr IV ASDIRECTED [facility] Last Admin: 05/15/19 04:51 Dose: 125 mls/hr Acetaminophen 1,000 mg/ Premix 100 mls @ 400 mls/hr IV Q6H [facility] Stop: 05/15/19 15:29 Last Admin: 05/15/19 09:02 Dose: 400 mls/hr Acetaminophen 1,000 mg/ Premix 100 mls @ 400 mls/hr IV Q6H [facility] Stop: 05/16/19 16:46 Last Admin: 05/16/19 17:16 Dose: 400 mls/hr - Exam Wound/Incisions: Healing Well, Dressing Dry and Intact, No Drainage. No: Erythema General: Alert, Oriented, Cooperative, No Acute Distress Lungs: Clear to Auscultation, Normal Respiratory Effort Cardiovascular: Regular Rate, Regular Rhythm GI/Abdominal Exam: Normal Bowel Sounds, Soft - Problem List & Annotations (1) S/P colon resection SNOMED Code(s): 737255168, 68143936, 42767116, 672957522 Code(s): Z90.49 - ACQUIRED ABSENCE OF OTHER SPECIFIED PARTS OF DIGESTIVE TRACT Status: Acute Current Visit: Yes Annotation/Comment:: left dejuan colectomy (2) S/P splenectomy during current hospitalisation SNOMED Code(s): 969607712 Code(s): ARE7702 - Status: Acute Current Visit: Yes - Problem List Review Problem List Initiated/Reviewed/Updated: Yes - My Orders Last 24 Hours: Active Orders 24 hr Category Date Time Status Gabapentin [Neurontin] Med 05/18/19 09:00 Ordered 100 mg PO TID Hydrochlorothiazide/Losartan [Hyzaar 100-12.5 MG] Med 05/18/19 09:00 Ordered 1 each PO DAILY amLODIPine [Norvasc] Med 05/17/19 09:30 Active 5 mg PO BID Medication Orders Amlodipine Besylate (Norvasc) 5 mg PO BID [facility] Last Admin: 05/17/19 20:21 Dose: 5 mg Admin: 05/17/19 09:48 Dose: 5 mg HCTZ/Losartan Potassium (Hyzaar 100-12.5 Mg) tab PO DAILY [facility] Hydromorphone HCl (Dilaudid) 1 mg IVPUSH Q1H PRN PRN Reason: Pain (moderate 4-6) Last Admin: 05/18/19 00:33 Dose: 1 mg Admin: 05/16/19 21:48 Dose: 1 mg Admin: 05/16/19 09:46 Dose: 1 mg Admin: 05/16/19 00:58 Dose: 1 mg Admin: 05/15/19 13:01 Dose: 1 mg Admin: 05/15/19 02:02 Dose: 1 mg Admin: 05/14/19 17:37 Dose: 1 mg Albumin Human (Flexbumin 5%) 250 mls @ 250 mls/hr IV ASDIRECTED [facility] Last Admin: 05/14/19 15:21 Dose: 250 mls/hr Potassium Chloride/Dextrose/Sod Cl (D5 1/2 Ns W/ 20 Meq/L Kcl) 1,000 mls @ 75 mls/hr IV Q8H [facility] Last Admin: 05/18/19 01:35 Dose: 125 mls/hr Infusion: 05/18/19 01:35 Dose: 125 mls/hr Admin: 05/17/19 17:45 Dose: 125 mls/hr Infusion: 05/17/19 17:45 Dose: 125 mls/hr Admin: 05/17/19 09:50 Dose: 125 mls/hr Infusion: 05/17/19 09:50 Dose: 125 mls/hr Admin: 05/17/19 02:11 Dose: 125 mls/hr Infusion: 05/17/19 02:11 Dose: 125 mls/hr Admin: 05/16/19 18:24 Dose: 125 mls/hr Infusion: 05/16/19 17:45 Dose: 125 mls/hr Admin: 05/16/19 09:45 Dose: 125 mls/hr Infusion: 05/16/19 09:22 Dose: 125 mls/hr Admin: 05/16/19 01:22 Dose: 125 mls/hr Infusion: 05/16/19 01:15 Dose: 125 mls/hr Admin: 05/15/19 17:15 Dose: 125 mls/hr Infusion: 05/15/19 17:15 Dose: 125 mls/hr Admin: 05/15/19 09:25 Dose: 125 mls/hr Insulin Human Lispro (Humalog) 0 unit SUBCUT Q8H [facility]; Protocol Last Admin: 05/18/19 01:40 Dose: 2 units Admin: 05/17/19 17:51 Dose: Admin: 05/17/19 10:44 Dose: Admin: 05/17/19 03:01 Dose: Not Given Admin: 05/16/19 18:28 Dose: Not Given Admin: 05/16/19 09:58 Dose: Admin: 05/16/19 01:35 Dose: Not Given Admin: 05/15/19 18:11 Dose: Not Given Admin: 05/15/19 10:38 Dose: Admin: 05/15/19 01:55 Dose: Not Given Admin: 05/14/19 18:12 Dose: 2 units Ondansetron HCl (Zofran) 4 mg IVPUSH Q6H PRN PRN Reason: Nausea/Vomiting Pantoprazole Sodium (Protonix Iv) 40 mg IVPUSH DAILY [facility] Last Admin: 05/17/19 09:30 Dose: 40 mg Admin: 05/16/19 09:32 Dose: 40 mg Admin: 05/15/19 08:59 Dose: 40 mg Admin: 05/14/19 17:28 Dose: 40 mg Sodium Chloride (Saline Flush) 10 ml FLUSH ASDIRECTED PRN PRN Reason: Keep Vein Open Last Admin: 05/17/19 09:36 Dose: 10 ml Admin: 05/16/19 17:38 Dose: 10 ml Admin: 05/16/19 09:53 Dose: 10 ml Admin: 05/16/19 09:40 Dose: 10 ml Admin: 05/15/19 13:02 Dose: 10 ml Admin: 05/15/19 08:12 Dose: 10 ml - Assessment Assessment (Free Text/Narrative):: mobilizing fluids. - Plan Plan (Free Text/Narrative):: dressing off will decrease IVF rate today will also start his other bp med recheck labs in the am. gabapentin low dose for hiccups.
[2019-05-18] MEDS: Gabapentin 100 MG Cap PO SCH ×4 (09:14→20:07)
[2019-05-18] MEDS: amLODIPine 5 MG Tab PO SCH ×2 (09:14→20:07)
[2019-05-18] MEDS: Pantoprazole 40 MG Vial IVPUSH SCH (09:14)
[2019-05-18] MEDS: Hydrochlorothiazide/Losartan 12.5-100 mg Tab PO SCH (09:41)
[2019-05-18] MEDS: Sodium Chloride 0.9% 10 ML Syringe FLUSH PRN (16:18)
[2019-05-19] MEDS: HYDROmorphone 2 MG/ML SDV IVPUSH PRN ×2 (01:48→23:30)
[2019-05-19] MEDS: Insulin Lispro 100 Unit/ML 3 ML KwikPen SUBCUT SCH ×3 (02:52→18:21)
[2019-05-19] MEDS: D5 1/2 NS w/ 20 mEq/L KCl 1,000 ML IV SCH ×3 (02:52→13:35)
[2019-05-19] MEDS: Gabapentin 100 MG Cap PO SCH ×3 (08:25→20:38)
[2019-05-19] MEDS: Pantoprazole 40 MG Vial IVPUSH SCH (08:25)
[2019-05-19] MEDS: amLODIPine 5 MG Tab PO SCH ×2 (08:38→20:38)
[2019-05-19] MEDS: Hydrochlorothiazide/Losartan 12.5-100 mg Tab PO SCH (08:39)
[2019-05-19] MEDS ORDERED: Sodium Chloride 0.9% 250 ML IV SCH (08:45)
--- NOTE | 2019-05-19 08:45 | PCM.SURGPN ---
- General Info Date of Service: 05/19/19 POD#: 5 Functional Status: Reports: Pain Controlled, Ambulating, Urinating, Incentive Spirometry - Review of Systems Pulmonary: Reports: No Symptoms Cardiovascular: Reports: No Symptoms Gastrointestinal: Reports: Flatus, Other (bowel movement x2 ) Musculoskeletal: Reports: No Symptoms Skin: Reports: No Symptoms - Patient Data Vitals - Most Recent: Last Vital Signs Temp 98.6 F 05/19/19 04:00 Pulse 81 05/19/19 04:00 Resp 17 05/19/19 04:00 BP 115/64 05/19/19 08:38 Pulse Ox 96 05/19/19 04:00 Weight - Most Recent: 98.883 kg I&O - Last 24 Hours: Intake & Output 05/18/19 05/19/19 05/19/19 22:59 06:59 14:59 Intake Total 559 605 Output Total 550 250 Balance 9 355 Lab Results Last 24 Hrs: Laboratory Results - last 24 hr 05/18/19 05/18/19 05/18/19 Range/Units 01:38 09:43 17:24 WBC (4.5-12.0) X10-3/uL RBC (4.30-5.75) x10(6)uL Hgb (13.5-17.8) g/dL Hct (30.0-51.3) % MCV (80-96) fL MCH (27.7-33.6) pg MCHC (32.2-35.4) g/dL RDW (11.5-15.5) % Plt Count (125-369) X10(3)uL MPV (7.4-10.4) fL Neut % (Auto) (46-82) % Lymph % (Auto) (13-37) % [place] % (Auto) (4-12) % Eos % (Auto) (1.0-5.0) % Baso % (Auto) (0-2) % Neut # (Auto) (1.6-8.3) # Lymph # (Auto) (0.6-5.0) # [place] # (Auto) (0.0-1.3) # Eos # (Auto) (0.0-0.8) # Baso # (Auto) (0.0-0.2) # Sodium (135-145) mmol/L Potassium (3.5-5.3) mmol/L Chloride (100-110) mmol/L Carbon Dioxide (21-32) mmol/L BUN (7-18) mg/dL Creatinine (0.70-1.30) mg/dL Est Cr Clr Drug Dosing mL/min Estimated GFR (MDRD) (>60) BUN/Creatinine Ratio (9-20) Glucose (80-116) mg/dL POC Glucose 150 H 131 H 127 H (80-116) mg/dL Calcium (8.6-10.2) mg/dL 05/19/19 05/19/19 05/19/19 Range/Units 01:43 06:00 06:00 WBC 11.1 (4.5-12.0) X10-3/uL RBC 2.68 L (4.30-5.75) x10(6)uL Hgb 6.9 L* (13.5-17.8) g/dL Hct 20.8 L* (30.0-51.3) % MCV 77.7 L (80-96) fL MCH 25.7 L (27.7-33.6) pg MCHC 33.1 (32.2-35.4) g/dL RDW 16.5 H (11.5-15.5) % Plt Count 343 (125-369) X10(3)uL MPV 8.8 (7.4-10.4) fL Neut % (Auto) 74.7 (46-82) % Lymph % (Auto) 9.6 L (13-37) % [place] % (Auto) 9.0 (4-12) % Eos % (Auto) 6 H (1.0-5.0) % Baso % (Auto) 1 (0-2) % Neut # (Auto) 8.2 (1.6-8.3) # Lymph # (Auto) 1.1 (0.6-5.0) # [place] # (Auto) 1.0 (0.0-1.3) # Eos # (Auto) 0.7 (0.0-0.8) # Baso # (Auto) 0.1 (0.0-0.2) # Sodium 138 (135-145) mmol/L Potassium 4.2 (3.5-5.3) mmol/L Chloride 104 (100-110) mmol/L Carbon Dioxide 28 (21-32) mmol/L BUN 12 (7-18) mg/dL Creatinine 1.0 (0.70-1.30) mg/dL Est Cr Clr Drug Dosing 68.74 mL/min Estimated GFR (MDRD) > 60 (>60) BUN/Creatinine Ratio 12.0 (9-20) Glucose 114 (80-116) mg/dL POC Glucose 110 (80-116) mg/dL Calcium 8.2 L (8.6-10.2) mg/dL Med Orders - Current: Current Medications Amlodipine Besylate (Norvasc) 5 mg PO BID [facility] Last Admin: 05/19/19 08:38 Dose: 5 mg Gabapentin (Neurontin) 100 mg PO TID [facility] Last Admin: 05/19/19 08:25 Dose: 100 mg HCTZ/Losartan Potassium (Hyzaar 100-12.5 Mg) 1 tab PO DAILY [facility] Last Admin: 05/19/19 08:39 Dose: 1 tab Hydromorphone HCl (Dilaudid) 1 mg IVPUSH Q1H PRN PRN Reason: Pain (moderate 4-6) Last Admin: 05/19/19 01:48 Dose: 1 mg Albumin Human (Flexbumin 5%) 250 mls @ 250 mls/hr IV ASDIRECTED [facility] Last Admin: 05/14/19 15:21 Dose: 250 mls/hr Potassium Chloride/Dextrose/Sod Cl (D5 1/2 Ns W/ 20 Meq/L Kcl) 1,000 mls @ 75 mls/hr IV Q8H [facility] Last Admin: 05/19/19 02:52 Dose: Not Given Sodium Chloride (Normal Saline) 250 mls @ 100 mls/hr IV ASDIRECTED [facility] Insulin Human Lispro (Humalog) 0 unit SUBCUT Q8H [facility]; Protocol Last Admin: 05/19/19 02:52 Dose: Not Given Ondansetron HCl (Zofran) 4 mg IVPUSH Q6H PRN PRN Reason: Nausea/Vomiting Pantoprazole Sodium (Protonix Iv) 40 mg IVPUSH DAILY [facility] Last Admin: 05/19/19 08:25 Dose: 40 mg Sodium Chloride (Saline Flush) 10 ml FLUSH ASDIRECTED PRN PRN Reason: Keep Vein Open Last Admin: 05/18/19 16:18 Dose: 10 ml Discontinued Medications Cefoxitin Sodium (Mefoxin) 2 gm IV ONETIME ONE Stop: 05/14/19 08:46 Last Admin: 05/14/19 09:05 Dose: 2 gm Lactated Ringer's (Ringers, Lactated) 1,000 mls @ 125 mls/hr IV ASDIRECTED [facility] Last Admin: 05/15/19 04:51 Dose: 125 mls/hr Acetaminophen 1,000 mg/ Premix 100 mls @ 400 mls/hr IV Q6H [facility] Stop: 05/15/19 15:29 Last Admin: 05/15/19 09:02 Dose: 400 mls/hr Acetaminophen 1,000 mg/ Premix 100 mls @ 400 mls/hr IV Q6H [facility] Stop: 05/16/19 16:46 Last Admin: 05/16/19 17:16 Dose: 400 mls/hr - Exam Wound/Incisions: Healing Well Lungs: Clear to Auscultation, Normal Respiratory Effort Cardiovascular: Regular Rate, Regular Rhythm GI/Abdominal Exam: Normal Bowel Sounds, Soft, Non-Tender - Problem List & Annotations (1) S/P colon resection SNOMED Code(s): 297006438, 72965828, 76887319, 553950436 Code(s): Z90.49 - ACQUIRED ABSENCE OF OTHER SPECIFIED PARTS OF DIGESTIVE TRACT Status: Acute Current Visit: Yes Annotation/Comment:: left dejuan colectomy (2) S/P splenectomy during current hospitalisation SNOMED Code(s): 166042702 Code(s): OVD8347 - Status: Acute Current Visit: Yes - Problem List Review Problem List Initiated/Reviewed/Updated: Yes - My Orders Last 24 Hours: Active Orders 24 hr Category Date Time Status May Shower [RC] ASDIRECTED Care 05/18/19 08:55 Active Clear Liquid Diet [DIET] Diet 05/19/19 Lunch Ordered RED BLOOD CELLS LP [BBK] Routine Lab 05/19/19 08:40 Ordered TYPE AND SCREEN [BBK] Routine Lab 05/19/19 08:40 Ordered Gabapentin [Neurontin] Med 05/18/19 09:00 Active 100 mg PO TID Hydrochlorothiazide/Losartan [Hyzaar 100-12.5 MG] Med 05/18/19 09:00 Active 1 tab PO DAILY Sodium Chloride 0.9% [Normal Saline] 250 ml Med 05/19/19 08:45 Ordered IV ASDIRECTED Transfuse RBC [Transfuse Red Blood Cells] [COMM] Oth 05/19/19 08:40 Ordered Routine Medication Orders Amlodipine Besylate (Norvasc) 5 mg PO BID [facility] Last Admin: 05/19/19 08:38 Dose: 5 mg Admin: 05/18/19 20:07 Dose: 5 mg Admin: 05/18/19 09:14 Dose: 5 mg Admin: 05/17/19 20:21 Dose: 5 mg Admin: 05/17/19 09:48 Dose: 5 mg Gabapentin (Neurontin) 100 mg PO TID [facility] Last Admin: 05/19/19 08:25 Dose: 100 mg Admin: 05/18/19 20:07 Dose: 100 mg Admin: 05/18/19 16:16 Dose: 100 mg Admin: 05/18/19 09:14 Dose: 100 mg HCTZ/Losartan Potassium (Hyzaar 100-12.5 Mg) 1 tab PO DAILY [facility] Last Admin: 05/19/19 08:39 Dose: 1 tab Admin: 05/18/19 09:41 Dose: 1 tab Hydromorphone HCl (Dilaudid) 1 mg IVPUSH Q1H PRN PRN Reason: Pain (moderate 4-6) Last Admin: 05/19/19 01:48 Dose: 1 mg Admin: 05/18/19 00:33 Dose: 1 mg Admin: 05/16/19 21:48 Dose: 1 mg Admin: 05/16/19 09:46 Dose: 1 mg Admin: 05/16/19 00:58 Dose: 1 mg Admin: 05/15/19 13:01 Dose: 1 mg Admin: 05/15/19 02:02 Dose: 1 mg Admin: 05/14/19 17:37 Dose: 1 mg Albumin Human (Flexbumin 5%) 250 mls @ 250 mls/hr IV ASDIRECTED [facility] Last Admin: 05/14/19 15:21 Dose: 250 mls/hr Potassium Chloride/Dextrose/Sod Cl (D5 1/2 Ns W/ 20 Meq/L Kcl) 1,000 mls @ 75 mls/hr IV Q8H [facility] Last Admin: 05/19/19 02:52 Dose: Not Given Admin: 05/18/19 22:43 Dose: 75 mls/hr Infusion: 05/18/19 22:40 Dose: 75 mls/hr Admin: 05/18/19 18:59 Dose: Admin: 05/18/19 09:20 Dose: 75 mls/hr Infusion: 05/18/19 09:20 Dose: 125 mls/hr Admin: 05/18/19 01:35 Dose: 125 mls/hr Infusion: 05/18/19 01:35 Dose: 125 mls/hr Admin: 05/17/19 17:45 Dose: 125 mls/hr Infusion: 05/17/19 17:45 Dose: 125 mls/hr Admin: 05/17/19 09:50 Dose: 125 mls/hr Infusion: 05/17/19 09:50 Dose: 125 mls/hr Admin: 05/17/19 02:11 Dose: 125 mls/hr Infusion: 05/17/19 02:11 Dose: 125 mls/hr Admin: 05/16/19 18:24 Dose: 125 mls/hr Infusion: 05/16/19 17:45 Dose: 125 mls/hr Admin: 05/16/19 09:45 Dose: 125 mls/hr Infusion: 05/16/19 09:22 Dose: 125 mls/hr Admin: 05/16/19 01:22 Dose: 125 mls/hr Infusion: 05/16/19 01:15 Dose: 125 mls/hr Admin: 05/15/19 17:15 Dose: 125 mls/hr Infusion: 05/15/19 17:15 Dose: 125 mls/hr Admin: 05/15/19 09:25 Dose: 125 mls/hr Sodium Chloride (Normal Saline) 250 mls @ 100 mls/hr IV ASDIRECTED [facility] Insulin Human Lispro (Humalog) 0 unit SUBCUT Q8H [facility]; Protocol Last Admin: 05/19/19 02:52 Dose: Not Given Admin: 05/18/19 17:32 Dose: Admin: 05/18/19 09:49 Dose: Admin: 05/18/19 01:40 Dose: 2 units Admin: 05/17/19 17:51 Dose: Admin: 05/17/19 10:44 Dose: Admin: 05/17/19 03:01 Dose: Not Given Admin: 05/16/19 18:28 Dose: Not Given Admin: 05/16/19 09:58 Dose: Admin: 05/16/19 01:35 Dose: Not Given Admin: 05/15/19 18:11 Dose: Not Given Admin: 05/15/19 10:38 Dose: Admin: 05/15/19 01:55 Dose: Not Given Admin: 05/14/19 18:12 Dose: 2 units Ondansetron HCl (Zofran) 4 mg IVPUSH Q6H PRN PRN Reason: Nausea/Vomiting Pantoprazole Sodium (Protonix Iv) 40 mg IVPUSH DAILY [facility] Last Admin: 05/19/19 08:25 Dose: 40 mg Admin: 05/18/19 09:14 Dose: 40 mg Admin: 05/17/19 09:30 Dose: 40 mg Admin: 05/16/19 09:32 Dose: 40 mg Admin: 05/15/19 08:59 Dose: 40 mg Admin: 05/14/19 17:28 Dose: 40 mg Sodium Chloride (Saline Flush) 10 ml FLUSH ASDIRECTED PRN PRN Reason: Keep Vein Open Last Admin: 05/18/19 16:18 Dose: 10 ml Admin: 05/17/19 09:36 Dose: 10 ml Admin: 05/16/19 17:38 Dose: 10 ml Admin: 05/16/19 09:53 Dose: 10 ml Admin: 05/16/19 09:40 Dose: 10 ml Admin: 05/15/19 13:02 Dose: 10 ml Admin: 05/15/19 08:12 Dose: 10 ml - Assessment Assessment (Free Text/Narrative):: appears to have a return of bowel function. has hit transfusion requirement with Hgb 6.9 - Plan Plan (Free Text/Narrative):: transfuse one unit clear liquid diet.
[2019-05-20] MEDS: Insulin Lispro 100 Unit/ML 3 ML KwikPen SUBCUT SCH ×2 (02:39→10:30)
[2019-05-20] MEDS: D5 1/2 NS w/ 20 mEq/L KCl 1,000 ML IV SCH (03:20)
--- NOTE | 2019-05-20 07:53 | PCM.SURGPN ---
- General Info Date of Service: 05/20/19 POD#: 6 Functional Status: Reports: Pain Controlled, Tolerating Diet, Ambulating, Urinating, Incentive Spirometry - Review of Systems Pulmonary: Reports: No Symptoms Cardiovascular: Reports: No Symptoms Gastrointestinal: Reports: Flatus - Patient Data Vitals - Most Recent: Last Vital Signs Temp 98.5 F 05/19/19 23:31 Pulse 77 05/19/19 23:31 Resp 16 05/19/19 23:31 BP 145/65 H 05/19/19 23:31 Pulse Ox 96 05/19/19 23:31 Weight - Most Recent: 98.883 kg I&O - Last 24 Hours: Intake & Output 05/19/19 05/20/19 05/20/19 22:59 06:59 14:59 Intake Total 150 1625 Output Total 800 Balance -650 1625 Lab Results Last 24 Hrs: Laboratory Results - last 24 hr 05/19/19 05/19/19 05/19/19 Range/Units 06:00 10:48 17:39 WBC (4.5-12.0) X10-3/uL Corrected WBC (4.5-12.0) X10(3) RBC (4.30-5.75) x10(6)uL Hgb (13.5-17.8) g/dL Hct (30.0-51.3) % MCV (80-96) fL MCH (27.7-33.6) pg MCHC (32.2-35.4) g/dL RDW (11.5-15.5) % Plt Count (125-369) X10(3)uL MPV (7.4-10.4) fL Add Manual Diff Neutrophils % (Manual) (46-82) % Lymphocytes % (Manual) (13-37) % Monocytes % (Manual) (4-12) % Eosinophils % (Manual) (0-5) % Nucleated RBCs (0-0) /100WBC Anisocytosis POC Glucose 107 118 H (80-116) mg/dL Blood Type O POSITIVE Gel Antibody Screen Positive Antibody Identification Anti-E Crossmatch See Detail 05/20/19 05/20/19 Range/Units 02:36 06:05 WBC 9.2 (4.5-12.0) X10-3/uL Corrected WBC 8.0 (4.5-12.0) X10(3) RBC 2.84 L (4.30-5.75) x10(6)uL Hgb 7.4 L (13.5-17.8) g/dL Hct 22.4 L (30.0-51.3) % MCV 78.9 L (80-96) fL MCH 26.2 L (27.7-33.6) pg MCHC 33.2 (32.2-35.4) g/dL RDW 16.2 H (11.5-15.5) % Plt Count 375 H (125-369) X10(3)uL MPV 8.8 (7.4-10.4) fL Add Manual Diff Yes Neutrophils % (Manual) 88 H (46-82) % Lymphocytes % (Manual) 4 L (13-37) % Monocytes % (Manual) 4 (4-12) % Eosinophils % (Manual) 4 (0-5) % Nucleated RBCs 9 H (0-0) /100WBC Anisocytosis Occasional POC Glucose 99 (80-116) mg/dL Blood Type Gel Antibody Screen Antibody Identification Crossmatch Med Orders - Current: Current Medications Amlodipine Besylate (Norvasc) 5 mg PO BID [facility] Last Admin: 05/19/19 20:38 Dose: 5 mg Gabapentin (Neurontin) 100 mg PO TID [facility] Last Admin: 05/19/19 20:38 Dose: 100 mg HCTZ/Losartan Potassium (Hyzaar 100-12.5 Mg) 1 tab PO DAILY [facility] Last Admin: 05/19/19 08:39 Dose: 1 tab Hydromorphone HCl (Dilaudid) 1 mg IVPUSH Q1H PRN PRN Reason: Pain (moderate 4-6) Last Admin: 05/19/19 23:30 Dose: 1 mg Albumin Human (Flexbumin 5%) 250 mls @ 250 mls/hr IV ASDIRECTED [facility] Last Admin: 05/14/19 15:21 Dose: 250 mls/hr Sodium Chloride (Normal Saline) 250 mls @ 100 mls/hr IV ASDIRECTED [facility] Potassium Chloride/Dextrose/Sod Cl (D5 1/2 Ns W/ 20 Meq/L Kcl) 1,000 mls @ 75 mls/hr IV Q13H [facility] Last Admin: 05/20/19 03:20 Dose: 75 mls/hr Insulin Human Lispro (Humalog) 0 unit SUBCUT Q8H [facility]; Protocol Last Admin: 05/20/19 02:39 Dose: Not Given Ondansetron HCl (Zofran) 4 mg IVPUSH Q6H PRN PRN Reason: Nausea/Vomiting Pantoprazole Sodium (Protonix Iv) 40 mg IVPUSH DAILY [facility] Last Admin: 05/19/19 08:25 Dose: 40 mg Sodium Chloride (Saline Flush) 10 ml FLUSH ASDIRECTED PRN PRN Reason: Keep Vein Open Last Admin: 05/18/19 16:18 Dose: 10 ml Discontinued Medications Cefoxitin Sodium (Mefoxin) 2 gm IV ONETIME ONE Stop: 05/14/19 08:46 Last Admin: 05/14/19 09:05 Dose: 2 gm Lactated Ringer's (Ringers, Lactated) 1,000 mls @ 125 mls/hr IV ASDIRECTED [facility] Last Admin: 05/15/19 04:51 Dose: 125 mls/hr Acetaminophen 1,000 mg/ Premix 100 mls @ 400 mls/hr IV Q6H [facility] Stop: 05/15/19 15:29 Last Admin: 05/15/19 09:02 Dose: 400 mls/hr Potassium Chloride/Dextrose/Sod Cl (D5 1/2 Ns W/ 20 Meq/L Kcl) 1,000 mls @ 75 mls/hr IV Q8H [facility] Stop: 05/19/19 11:59 Last Admin: 05/19/19 09:00 Dose: Not Given Acetaminophen 1,000 mg/ Premix 100 mls @ 400 mls/hr IV Q6H [facility] Stop: 05/16/19 16:46 Last Admin: 05/16/19 17:16 Dose: 400 mls/hr - Exam Wound/Incisions: Healing Well General: Alert, Oriented, Cooperative Lungs: Clear to Auscultation, Normal Respiratory Effort Cardiovascular: Regular Rate, Regular Rhythm GI/Abdominal Exam: Normal Bowel Sounds, Soft, Non-Tender - Problem List & Annotations (1) S/P colon resection SNOMED Code(s): 668203663, 95482846, 26660247, 145729876 Code(s): Z90.49 - ACQUIRED ABSENCE OF OTHER SPECIFIED PARTS OF DIGESTIVE TRACT Status: Acute Current Visit: Yes Annotation/Comment:: left dejuan colectomy (2) S/P splenectomy during current hospitalisation SNOMED Code(s): 637590444 Code(s): IKT2626 - Status: Acute Current Visit: Yes - Problem List Review Problem List Initiated/Reviewed/Updated: Yes - My Orders Last 24 Hours: Active Orders 24 hr Category Date Time Status Full Liquid Diet [DIET] Diet 05/19/19 Dinner Active D5 1/2 NS w/ 20 mEq/L KCl 1,000 ml Med 05/19/19 12:00 Active IV Q13H Sodium Chloride 0.9% [Normal Saline] 250 ml Med 05/19/19 08:45 Active IV ASDIRECTED Transfuse RBC [Transfuse Red Blood Cells] [COMM] Oth 05/19/19 08:40 Ordered Routine Medication Orders Amlodipine Besylate (Norvasc) 5 mg PO BID [facility] Last Admin: 05/19/19 20:38 Dose: 5 mg Admin: 05/19/19 08:38 Dose: 5 mg Admin: 05/18/19 20:07 Dose: 5 mg Admin: 05/18/19 09:14 Dose: 5 mg Admin: 05/17/19 20:21 Dose: 5 mg Admin: 05/17/19 09:48 Dose: 5 mg Gabapentin (Neurontin) 100 mg PO TID [facility] Last Admin: 05/19/19 20:38 Dose: 100 mg Admin: 05/19/19 14:05 Dose: 100 mg Admin: 05/19/19 08:25 Dose: 100 mg Admin: 05/18/19 20:07 Dose: 100 mg Admin: 05/18/19 16:16 Dose: 100 mg Admin: 05/18/19 09:14 Dose: 100 mg HCTZ/Losartan Potassium (Hyzaar 100-12.5 Mg) 1 tab PO DAILY [facility] Last Admin: 05/19/19 08:39 Dose: 1 tab Admin: 05/18/19 09:41 Dose: 1 tab Hydromorphone HCl (Dilaudid) 1 mg IVPUSH Q1H PRN PRN Reason: Pain (moderate 4-6) Last Admin: 05/19/19 23:30 Dose: 1 mg Admin: 05/19/19 01:48 Dose: 1 mg Admin: 05/18/19 00:33 Dose: 1 mg Admin: 05/16/19 21:48 Dose: 1 mg Admin: 05/16/19 09:46 Dose: 1 mg Admin: 05/16/19 00:58 Dose: 1 mg Admin: 05/15/19 13:01 Dose: 1 mg Admin: 05/15/19 02:02 Dose: 1 mg Admin: 05/14/19 17:37 Dose: 1 mg Albumin Human (Flexbumin 5%) 250 mls @ 250 mls/hr IV ASDIRECTED [facility] Last Admin: 05/14/19 15:21 Dose: 250 mls/hr Sodium Chloride (Normal Saline) 250 mls @ 100 mls/hr IV ASDIRECTED [facility] Potassium Chloride/Dextrose/Sod Cl (D5 1/2 Ns W/ 20 Meq/L Kcl) 1,000 mls @ 75 mls/hr IV Q13H [facility] Last Admin: 05/20/19 03:20 Dose: 75 mls/hr Infusion: 05/20/19 02:55 Dose: 75 mls/hr Admin: 05/19/19 13:35 Dose: 75 mls/hr Insulin Human Lispro (Humalog) 0 unit SUBCUT Q8H [facility]; Protocol Last Admin: 05/20/19 02:39 Dose: Not Given Admin: 05/19/19 18:21 Dose: Not Given Admin: 05/19/19 10:00 Dose: Not Given Admin: 05/19/19 02:52 Dose: Not Given Admin: 05/18/19 17:32 Dose: Admin: 05/18/19 09:49 Dose: Admin: 05/18/19 01:40 Dose: 2 units Admin: 05/17/19 17:51 Dose: Admin: 05/17/19 10:44 Dose: Admin: 05/17/19 03:01 Dose: Not Given Admin: 05/16/19 18:28 Dose: Not Given Admin: 05/16/19 09:58 Dose: Admin: 05/16/19 01:35 Dose: Not Given Admin: 05/15/19 18:11 Dose: Not Given Admin: 05/15/19 10:38 Dose: Admin: 05/15/19 01:55 Dose: Not Given Admin: 05/14/19 18:12 Dose: 2 units Ondansetron HCl (Zofran) 4 mg IVPUSH Q6H PRN PRN Reason: Nausea/Vomiting Pantoprazole Sodium (Protonix Iv) 40 mg IVPUSH DAILY [facility] Last Admin: 05/19/19 08:25 Dose: 40 mg Admin: 05/18/19 09:14 Dose: 40 mg Admin: 05/17/19 09:30 Dose: 40 mg Admin: 05/16/19 09:32 Dose: 40 mg Admin: 05/15/19 08:59 Dose: 40 mg Admin: 05/14/19 17:28 Dose: 40 mg Sodium Chloride (Saline Flush) 10 ml FLUSH ASDIRECTED PRN PRN Reason: Keep Vein Open Last Admin: 05/18/19 16:18 Dose: 10 ml Admin: 05/17/19 09:36 Dose: 10 ml Admin: 05/16/19 17:38 Dose: 10 ml Admin: 05/16/19 09:53 Dose: 10 ml Admin: 05/16/19 09:40 Dose: 10 ml Admin: 05/15/19 13:02 Dose: 10 ml Admin: 05/15/19 08:12 Dose: 10 ml - Assessment Assessment (Free Text/Narrative):: doing very well - Plan Plan (Free Text/Narrative):: advance diet po pain meds.
[2019-05-20] MEDS ORDERED: Acetaminophen 500 MG Tab PO PRN (07:55)
[2019-05-20] MEDS ORDERED: Pantoprazole 40 MG Tab.CR PO SCH (08:00)
[2019-05-20] MEDS: Gabapentin 100 MG Cap PO SCH ×2 (09:10→13:49)
[2019-05-20] MEDS: amLODIPine 5 MG Tab PO SCH (09:10)
[2019-05-20] MEDS: Hydrochlorothiazide/Losartan 12.5-100 mg Tab PO SCH (09:10)
--- NOTE | 2019-05-20 17:28 | PCM.DCSUM1 ---
Discharge Summary - Hospital Course Free Text/Narrative:: Pt underwent a left hemicolectomy and splenectomy. (See op note for details). Post op course was unremarkable. NGT and duque were removed by POD #2. He demonstrated good pain control with iv tylenol and occasional dilaudid. Was started on his PO BP meds which he tolerated. With return of flatus and bowel movements, he was started on a clear liquid diet, this was advanced to regular without incidence. He did receive a single unit of prbc when his Hgb decreased below 7.0. see DC form of home care. Diagnosis: Stroke: No - Discharge Data Discharge Date: 05/20/19 Discharge Disposition: Home, Self-Care 01 Condition: Good - Discharge Diagnosis/Problem(s) (1) S/P colon resection SNOMED Code(s): 673980498, [id number], [id number], [id number] ICD Code: Z90.49 - ACQUIRED ABSENCE OF OTHER SPECIFIED PARTS OF DIGESTIVE TRACT Status: Acute Current Visit: Yes Problem Details: left dejuan colectomy (2) S/P splenectomy during current hospitalisation SNOMED Code(s): 190741337 ICD Code: [id number] - Status: Acute Current Visit: Yes - Patient Summary/Data Operative Procedure(s) Performed: left hemicolectomy splenectomy - Patient Instructions Diet: Usual Diet as Tolerated, No Alcoholic Beverages Activity: No Lifting Over 25 Pounds, No Strenuous Activities, Rest and Relax Today Driving: Do Not Drive Showering/Bathing: May Shower Notify Provider of: Fever, Increased Pain, Nausea and/or Vomiting - Discharge Plan *PRESCRIPTION DRUG MONITORING PROGRAM REVIEWED*: No *COPY OF PRESCRIPTION DRUG MONITORING REPORT IN PATIENT TANNER: No Home Medications: Home Meds Acetaminophen [Tylenol] 325 mg PO Q4H PRN 04/14/19 [History] Aspirin [Low Dose Aspirin EC] 81 mg PO DAILY 04/14/19 [History] Cholecalciferol (Vitamin D3) [Vitamin D3] 2,000 unit PO DAILY 04/14/19 [History] Cinnamon Bark [Cinnamon] 1,000 mg PO BID 04/14/19 [History] Dextran 70/Hypromellose [Artificial Tears] 1 drop EYEBOTH Q4H PRN 04/14/19 [ History] Docusate Sodium [Colace] 100 mg PO DAILY 04/14/19 [History] Flaxseed Oil [Flax Oil] 1,000 mg PO DAILY 04/14/19 [History] Garlic [Garlic X] 400 mg PO DAILY 04/14/19 [History] Pat Root [Pat] 250 mg PO BID 04/14/19 [History] Glycerin 1 each RC Q12H PRN 04/14/19 [History] Losartan/Hydrochlorothiazide [Losartan-HCTZ 100-12.5 MG] 1 each PO DAILY [History] Potassium Chloride 20 meq PO DAILY 04/14/19 [History] Turmeric/Turmeric Root Extract [Turmeric 500 mg Capsule] 500 mg PO DAILY [History] Vit C/[place] & Celery Ex/Grp E [Tart [place]] 1 each PO MOWEFR 04/14/19 [History] amLODIPine Besylate [Amlodipine Besylate] 5 mg PO BID 04/14/19 [History] Referrals: Tra Marie MD [Physician] - 05/23/19 - Discharge Summary/Plan Comment DC Time >30 min.: No - General Info Date of Service: 05/20/19 Functional Status: Reports: Pain Controlled, Tolerating Diet - Review of Systems Gastrointestinal: Reports: No Symptoms. Denies: Abdominal Pain - Patient Data Vitals - Most Recent: Last Vital Signs Temp 98.2 F 05/20/19 12:00 Pulse 70 05/20/19 12:00 Resp 17 05/20/19 12:00 BP 128/63 05/20/19 12:00 Pulse Ox 96 05/20/19 12:00 Weight - Most Recent: 98.883 kg I&O - Last 24 hours: Intake & Output 05/20/19 05/20/19 05/20/19 06:59 14:59 22:59 Intake Total 1625 Balance 1625 Lab Results - Last 24 hrs: Laboratory Results - last 24 hr 05/19/19 05/20/19 05/20/19 Range/Units 17:39 02:36 06:05 WBC 9.2 (4.5-12.0) X10-3/uL Corrected WBC 8.0 (4.5-12.0) X10(3) RBC 2.84 L (4.30-5.75) x10(6)uL Hgb 7.4 L (13.5-17.8) g/dL Hct 22.4 L (30.0-51.3) % MCV 78.9 L (80-96) fL MCH 26.2 L (27.7-33.6) pg MCHC 33.2 (32.2-35.4) g/dL RDW 16.2 H (11.5-15.5) % Plt Count 375 H (125-369) X10(3)uL MPV 8.8 (7.4-10.4) fL Add Manual Diff Yes Neutrophils % (Manual) 88 H (46-82) % Lymphocytes % (Manual) 4 L (13-37) % Monocytes % (Manual) 4 (4-12) % Eosinophils % (Manual) 4 (0-5) % Nucleated RBCs 9 H (0-0) /100WBC Anisocytosis Occasional POC Glucose 118 H 99 (80-116) mg/dL 05/20/19 Range/Units 10:46 WBC (4.5-12.0) X10-3/uL Corrected WBC (4.5-12.0) X10(3) RBC (4.30-5.75) x10(6)uL Hgb (13.5-17.8) g/dL Hct (30.0-51.3) % MCV (80-96) fL MCH (27.7-33.6) pg MCHC (32.2-35.4) g/dL RDW (11.5-15.5) % Plt Count (125-369) X10(3)uL MPV (7.4-10.4) fL Add Manual Diff Neutrophils % (Manual) (46-82) % Lymphocytes % (Manual) (13-37) % Monocytes % (Manual) (4-12) % Eosinophils % (Manual) (0-5) % Nucleated RBCs (0-0) /100WBC Anisocytosis POC Glucose 128 H (80-116) mg/dL Med Orders - Current: Current Medications Acetaminophen (Tylenol Extra Strength) 1,000 mg PO Q6H PRN PRN Reason: Pain Amlodipine Besylate (Norvasc) 5 mg PO BID [facility] Last Admin: 05/20/19 09:10 Dose: 5 mg Gabapentin (Neurontin) 100 mg PO TID [facility] Last Admin: 05/20/19 13:49 Dose: 100 mg HCTZ/Losartan Potassium (Hyzaar 100-12.5 Mg) 1 tab PO DAILY [facility] Last Admin: 05/20/19 09:10 Dose: 1 tab Hydromorphone HCl (Dilaudid) 1 mg IVPUSH Q1H PRN PRN Reason: Pain (moderate 4-6) Last Admin: 05/19/19 23:30 Dose: 1 mg Albumin Human (Flexbumin 5%) 250 mls @ 250 mls/hr IV ASDIRECTED [facility] Last Admin: 05/14/19 15:21 Dose: 250 mls/hr Insulin Human Lispro (Humalog) 0 unit SUBCUT Q8H [facility]; Protocol Last Admin: 05/20/19 10:30 Dose: Not Given Ondansetron HCl (Zofran) 4 mg IVPUSH Q6H PRN PRN Reason: Nausea/Vomiting Pantoprazole Sodium (Protonix) 40 mg PO 0600 [facility] Last Admin: 05/20/19 09:12 Dose: 40 mg Sodium Chloride (Saline Flush) 10 ml FLUSH ASDIRECTED PRN PRN Reason: Keep Vein Open Last Admin: 05/18/19 16:18 Dose: 10 ml Discontinued Medications Cefoxitin Sodium (Mefoxin) 2 gm IV ONETIME ONE Stop: 05/14/19 08:46 Last Admin: 05/14/19 09:05 Dose: 2 gm Lactated Ringer's (Ringers, Lactated) 1,000 mls @ 125 mls/hr IV ASDIRECTED [facility] Last Admin: 05/15/19 04:51 Dose: 125 mls/hr Acetaminophen 1,000 mg/ Premix 100 mls @ 400 mls/hr IV Q6H [facility] Stop: 05/15/19 15:29 Last Admin: 05/15/19 09:02 Dose: 400 mls/hr Potassium Chloride/Dextrose/Sod Cl (D5 1/2 Ns W/ 20 Meq/L Kcl) 1,000 mls @ 75 mls/hr IV Q8H [facility] Stop: 05/19/19 11:59 Last Admin: 05/19/19 09:00 Dose: Not Given Acetaminophen 1,000 mg/ Premix 100 mls @ 400 mls/hr IV Q6H [facility] Stop: 05/16/19 16:46 Last Admin: 05/16/19 17:16 Dose: 400 mls/hr Sodium Chloride (Normal Saline) 250 mls @ 100 mls/hr IV ASDIRECTED [facility] Potassium Chloride/Dextrose/Sod Cl (D5 1/2 Ns W/ 20 Meq/L Kcl) 1,000 mls @ 75 mls/hr IV Q13H [facility] Last Admin: 05/20/19 03:20 Dose: 75 mls/hr Pantoprazole Sodium (Protonix Iv) 40 mg IVPUSH DAILY [facility] Last Admin: 05/19/19 08:25 Dose: 40 mg - Exam General: Reports: Alert, Oriented, Cooperative, No Acute Distress GI/Abdominal Exam: Soft, Non-Tender
== END 2019-05-20 17:55 | disposition home or self-care (01) | DRG 330 ==
LOC: FB.MS 07:15 → UNDOADMIN 07:27 → FB.MS 07:27 → UNDOADMIN 14:10 → FB.ICU 14:32 → FB.MS 14:32 → UNDODISIN 05-20 17:55
PROVIDERS: ADMIT Surgery; ATTEND Surgery
PROC: 0DTG0ZZ Resection of Left Large Intestine, Open Approach (ICD-10-PCS; principal; 2019-05-14)
PROC: 07TP0ZZ Resection of Spleen, Open Approach (ICD-10-PCS; 2019-05-14)
PROC: 30233N1 Transfusion of Nonautologous Red Blood Cells into Peripheral Vein, Percutaneous Approach (ICD-10-PCS; 2019-05-19)
DX: C18.6 Malignant neoplasm of descending colon (principal); D78.02 Intraoperative hemorrhage and hematoma of the spleen complicating other procedure; N13.8 Other obstructive and reflux uropathy; E11.9 Type 2 diabetes mellitus without complications; I10 Essential (primary) hypertension; M10.9 Gout, unspecified; N40.1 Benign prostatic hyperplasia with lower urinary tract symptoms; Z85.528 Personal history of other malignant neoplasm of kidney; E66.9 Obesity, unspecified; Z68.32 Body mass index [BMI] 32.0-32.9, adult; D64.9 Anemia, unspecified; R06.6 Hiccough; Z90.49 Acquired absence of other specified parts of digestive tract; Z90.5 Acquired absence of kidney; Z88.8 Allergy status to other drugs, medicaments and biological substances
CPT/HCPCS: 36415; 36430; 80048; 82962; 85025; 86850; 86900; 86901; 86902; 86920; 86922; 88305; 88309; 94150; A9270-GY; C9113; J0131; J0330; J0694; J1170; J1815; J2250; J2370; J2405; J2704; J3010; J3480; J3490; J7120; P9016; P9045